=== PATIENT | female | born 1940 | race Caucasian/White ===

== ENCOUNTER → 2019-10-17 14:34 | Outpatient (CLI) | payer MEDICARE, SELFPAY ==
--- NOTE | ~2019-10-17 | XR_ITS ---
EXAMINATION: XR lumbar spine 2-3V DATE: 10/17/2019 15:00 INDICATION: Low back pain. TECHNIQUE: 3 views of lumbar spine were obtained. COMPARISON: Lumbar spine radiographs 10/04/2017 FINDINGS: There is 6 degrees levocurvature of thoracic lumbar spine. Vertebral body heights are adeline l. There is mildly decreased disc height at L1-L2 and L2-L3. There are endplate osteophytes at most l evels. There is multilevel facet joint osteoarthritis, moderate in lower lumbar spine. IMPRESSION: 1. Mild lumbar spondylosis. Reviewed, dictated and finalized at location A. EILLANCE OBSERVER IMPRESSION: 1. Mild lumbar spondylosis.
== END ==
PROVIDERS: Visit Provider Family Medicine Adolescent Medicine
DX: M47.896 Other spondylosis, lumbar region (principal)
CPT/HCPCS: 72100

== ENCOUNTER → 2020-10-25 15:15 | Outpatient (CLI) | payer MEDICARE, SELFPAY ==
--- NOTE | ~2020-10-25 | XR_ITS ---
EXAMINATION: XR hip RT min 2V DATE: 10/25/2020 15:37 INDICATION: Right hip pain. TECHNIQUE: 2 views of right hip were obtained. COMPARISON: None. FINDINGS: Bone alignment is normal. No fracture. There is mild right hip osteoarthritis. IMPRESSION: 1. Mild right hip osteoarthritis. Reviewed, dictated and finalized at location A. ART TECHNICIAN
== END ==
PROVIDERS: Visit Provider Family Medicine Adolescent Medicine
DX: M16.11 Unilateral primary osteoarthritis, right hip (principal)
CPT/HCPCS: 73502

== ENCOUNTER → 2020-11-29 12:39 | Outpatient (CLI) | payer MEDICARE, SELFPAY ==
--- NOTE | ~2020-11-29 | XR_ITS ---
EXAMINATION: XR ankle LT min 3V, XR foot LT min 3V DATE: 11/29/2020 13:13 INDICATION: Left foot and ankle pain TECHNIQUE: 1. Anteroposterior, mortise, additional oblique and lateral view of the left ankle were obtained. 2. Dorsoplantar, two oblique and lateral views of the left foot were obtained. COMPARISON: None. FINDINGS: There is mild medial angulation and mild hyperflexion at the left third distal interphalangeal joint. Alignment of the foot and ankle is otherwise normal with old healed fracture at the neck of the left fifth metatarsal. No acute fracture. Diffuse osteopenia. Mild polyarticular osteoarthritis throughou t the left foot and ankle most prominent at the tarsal metatarsal and interphalangeal joints. Small p lantar calcaneal spur. No ankle joint effusion. The soft tissues are unremarkable. IMPRESSION: 1. Degenerative skeletal changes including small plantar calcaneal spur and mild polyarticular osteoa rthritis in the left foot. Reviewed, dictated and finalized at location A. IMPRESSION: 1. Degenerative skeletal changes including small plantar calcaneal spur and mil d polyarticular osteoarthritis in the left foot.
== END ==
PROVIDERS: PCP Family Medicine Adolescent Medicine; Visit Provider Family Medicine Adolescent Medicine
DX: M77.32 Calcaneal spur, left foot (principal); M19.072 Primary osteoarthritis, left ankle and foot
CPT/HCPCS: 73610; 73630

== ENCOUNTER 2021-01-03 16:27 | Emergency (ER) | payer MEDICARE, SELFPAY ==
--- NOTE | ~2021-01-03 | XR_ITS ---
EXAMINATION: XR abdomen/kub 1V DATE: 01/03/2021 17:27 INDICATION: Constipation TECHNIQUE: A supine view of the abdomen on 3 radiographs was obtained. COMPARISON: None. FINDINGS: There is a large amount of stool scattered throughout the colon from cecum to the rectum. No dilated loops of gas-filled small bowel to suggest obstruction. Lung bases are clear. Heart size is normal. C ouple phleboliths in the right hemipelvis. Mild scattered degenerative skeletal changes. IMPRESSION: 1. Large amount of stool throughout the colon consistent with given history of constipation. Reviewed, dictated and finalized at location A.
[2021-01-03 16:41] VITALS: BP 151/78; PULSE 65; RESP 22; TEMP 36.7; O2SAT 95
--- NOTE | 2021-01-03 17:01 | ED.GENADULT ---
HPI - General Adult General Chief complaint: Unspecified Stated complaint: constipation Time Seen by Provider: 01/03/21 16:44 Source: patient and family History of Present Illness HPI narrative: Patient is a 80 y/o female complain of severe constipation. states that her last BM was 4 days ago. They tried milk of magnesia, which did not help. He states that she has some pain when she attempted to have a BM earlier, but she denies any pain currently. She has no vomiting. Related Data Allergies Allergy/AdvReac Type Severity Reaction Status Date / Time No Known Allergies Allergy Unverified 02/23/19 10:17 Review of Systems Constitutional: Constitutional: Denies chills, Denies fever(s), Denies headache(s) and Denies weakness Eyes: Eyes: Denies blurry vision ENT: Denies headache(s) and Denies neck pain Cardiovascular: Cardiovascular: Denies chest pain and Denies dyspnea Respiratory: Respiratory: Denies cough and Denies dyspnea Gastrointestinal: Gastrointestinal: Denies abdominal pain, Reports constipation, Denies diarrhea, Denies nausea and Denies vomiting Genitourinary: Genitourinary: Denies hematuria and Denies dysuria Musculoskeletal: Musculoskeletal: Denies back pain and Denies neck pain Neurologic: Denies headache(s) and Denies weakness Exam Const: General: no acute distress and well developed Orientation/consciousness: oriented to person and oriented to place HENMT: Head: normocephalic Ears: external ears normal General nose exam: Normal external nose present Eyes: General: appearance normal, both eyes and all related structures Conjunctivae: conjunctivae normal Neck: Neck: normal visual inspection and full ROM Chest: Chest palpation & inspection: normal inspection of the chest and no tenderness Resp: Effort & Inspection: normal respiratory effort Auscultation: clear to auscultation bilaterally Cardio: Rate: regular rate Rhythm: regular rhythm GI: GI Palp: No abdominal tenderness and Yes Soft to palpation Skin: General skin exam: normal color and turgor normal Neuro: General: oriented to person, oriented to place and confusion Cognition (Neuro): normal cognition Extrem: General: normal to inspection, full ROM and no pedal edema Psych: Appearance: grossly normal Mental Status: mental status grossly normal Affect: normal affect Course Reevaluation(s) Reevaluation #1: Rechecked. Patient feels better. She just had a BM. Discussed with patient and about labs including anemia. states that patient has blood in stool sometimes. Offered patient admission for observation and urgent GI work. However, patient and family do not want to stay in the hospital. He state that he will call tomorrow to schedule GI appointment for her. Date: 01/03/21 Time: 19:19 Vital Signs Vital signs: Vital Signs Temperature 36.7 C 01/03/21 16:41 Pulse Rate 65 01/03/21 16:41 Respiratory Rate 22 H 01/03/21 16:41 Blood Pressure 151/78 H 01/03/21 16:41 Pulse Oximetry 95 01/03/21 16:41 Temperature 36.7 C 01/03/21 19:37 Pulse Rate 72 01/03/21 19:37 Respiratory Rate 16 01/03/21 19:37 Blood Pressure 192/85 H 01/03/21 19:37 Pulse Oximetry 100 01/03/21 19:37 Medical Decision Making Vital Signs Vital Signs: Vital Signs Temperature 36.7 C 01/03/21 16:41 Pulse Rate 65 01/03/21 16:41 Respiratory Rate 22 H 01/03/21 16:41 Blood Pressure 151/78 H 01/03/21 16:41 Pulse Oximetry 95 01/03/21 16:41 Temperature 36.7 C 01/03/21 19:37 Pulse Rate 72 01/03/21 19:37 Respiratory Rate 16 01/03/21 19:37 Blood Pressure 192/85 H 01/03/21 19:37 Pulse Oximetry 100 01/03/21 19:37 Lab Data Result diagrams: 01/03/21 17:06 01/03/21 17:06 Labs: Lab Results 01/03/21 01/03/21 Range/Units 17:06 17:06 WBC 8.7 (4.5-10.0) K/mm3 RBC 3.73 L (4.2-5.4) M/mm3 Hgb 8.6 L (12.0-15.0) g/dL Hct 29.0 L (37.0-47.0) % MCV
[2021-01-03 17:12] LABS: Basophils Percent Auto 0.5 % (0.2-1.2); Eosinophils Absolute Auto 0.1 K/mm3 (0-0.3); Eosinophils Percent Auto 0.8 % (0-4.4); Hemoglobin 8.6 g/dL (12.0-15.0); Immature Granulocyte Absolute 0.01 K/mm3 (0.00-0.031); Immature Granulocyte Percent A 0.1 % (0-0.5); Lymphocytes Absolute Auto 1.06 K/mm3 (0.9-3.2); Lymphocytes Percent Auto 12.2 % (18.3-44.2); Mean Corpuscular HGB Conc 29.7 g/dl (32-36); Mean Corpuscular Hemoglobin 23.1 pg (26-34); Mean Corpuscular Volume 77.7 fl (80-100); Mean Platelet Volume 9.3 fl (7.4-10.4); Monocytes Absolute Auto 0.6 K/mm3 (0.1-0.6); Monocytes Percent Auto 6.9 % (2.6-8.5); Neutrophils Absolute Auto 6.9 K/mm3 (1.3-6.7); Neutrophils Percent Auto 79.5 % (45.5-73.1); Platelet Count Result 318 k/mm3 (150-375); Red Blood Count 3.73 M/mm3 (4.2-5.4); Red Cell Distribution Width 16.7 % (11.5-14.5); White Blood Count 8.7 K/mm3 (4.5-10.0)
[2021-01-03 17:22] LABS: Alanine Aminotransferase 15 U/L (4-35); Albumin Level 3.7 g/dL (3.5-5.1); Alkaline Phosphatase 54 U/L (38-126); Anion Gap 5 mmol/L (8-16); Aspartate Amino Transferase 27 U/L (14-36); Bilirubin,Total < 0.1 mg/dL (0.2-1.3); Blood Urea Nitrogen 23 mg/dL (7-17); Calcium 8.6 mg/dL (8.4-10.2); Carbon Dioxide 26 mmol/L (22-30); Chloride 108 mmol/L (98-107); Estimated CRCL calculation 48 ml/min; Estimated Glomerular Filt Rate 60; Glucose 144 mg/dL (65-105); Potassium 4.2 mmol/L (3.4-5.0); Sodium 139 mmol/L (137-145)
[2021-01-03 17:33] LABS: Anisocytosis 2+ (NORMAL); Platelet Estimate Adequate (Adequate)
[2021-01-03 17:34] LABS: Hypochromasia 1+ (NORMAL)
[2021-01-03 18:00] VITALS: BP 157/75; PULSE 64; RESP 16; O2SAT 100
[2021-01-03] MEDS: BISACODYL 10 MG SUPPOSITORY RECTAL (18:00)
[2021-01-03] MEDS: MAGNESIUM CITRATE 300 ML BTL PO (18:00)
[2021-01-03 18:43] VITALS: BP 163/78; PULSE 68; RESP 20; O2SAT 98
[2021-01-03] MEDS: SODIUM CHLORIDE 0.9% IV 1,000 ML 999 ML IV CONT (18:46)
--- NOTE | 2021-01-03 19:24 | PC.NURSE ---
Pt ambulated to bathroom and had a large bowel movement. EDP grecia notified.
[2021-01-03 19:37] VITALS: BP 192/85; PULSE 72; RESP 16; TEMP 36.7; O2SAT 100
== END 2021-01-03 19:55 | disposition home or self-care (01) ==
PROVIDERS: Emergency Provider Emergency Medicine; PCP Family Medicine Adolescent Medicine
DX: K92.1 Melena (principal); K59.00 Constipation, unspecified; D64.9 Anemia, unspecified
CPT/HCPCS: 36415; 74018; 80053; 85025; 96360; 99283; A9270; J7030

== ENCOUNTER → 2021-04-26 03:26 | Outpatient (CLI) | payer MEDICARE, SELFPAY ==
[2021-04-26 19:42] LABS: SARS-CoV-2 RNA PCR Positive
== END ==
PROVIDERS: PCP Family Medicine Adolescent Medicine; Visit Provider Physician Assistant
DX: U07.1 COVID-19 (principal)
CPT/HCPCS: C9803; U0003; U0005

== ENCOUNTER 2021-07-02 15:10 | Emergency (ER) | payer MEDICARE, SELFPAY ==
[2021-07-02 15:27] VITALS: BP 164/77; PULSE 58; RESP 18; TEMP 36.5; O2SAT 99
--- NOTE | 2021-07-02 16:14 | ED.FEMALEGU ---
HPI - Female Genitourinary General Chief complaint: Urogenital-Female Stated complaint: UTI Time Seen by Provider: 07/02/21 16:08 Source: patient, family and RN notes reviewed Mode of arrival: ambulatory Limitations: no limitations History of Present Illness HPI Narrative: Patient presents with daughter complaining of 2-day history of dysuria, hematuria. Denies abdominal pain, frequency, urgency, back pain, fever. No [id number] interventions prior to arrival. MD elicited complaint: UTI Related Data Home Medications Medication Instructions Recorded Confirmed citalopram mg 07/02/21 donepezil mg 07/02/21 meloxicam 07/02/21 memantine mg 07/02/21 pantoprazole PO 07/02/21 simvastatin mg 07/02/21 sotalol 07/02/21 trazodone 07/02/21 Allergies Allergy/AdvReac Type Severity Reaction Status Date / Time No Known Allergies Allergy Verified 07/02/21 15:34 Review of Systems Review of Systems: CONSTITUTIONAL: Denies body aches, fever, chills, or sweats. EYES: Denies visual changes, redness, or discharge. ENT: Denies rhinorrhea, congestion, sore throat, or otalgia. CARDIOVASCULAR: Denies chest pain, palpitations, or edema. RESPIRATORY: Denies cough or dyspnea. GASTROINTESTINAL: Denies abdominal pain, nausea, vomiting, or diarrhea. GENITOURINARY: + Dysuria, hematuria SKIN: Denies rash, itching, or wounds. MUSCULOSKELETAL: Denies back pain, joint pain, or myalgia. NEUROLOGIC: Denies headache, numbness, tingling, or weakness. PSYCH: Denies depression or anxiety. FOR[facility] Past Medical History Medical History (Updated 07/02/21 @ 17:54 by Chey Marte, [facility], ) Alzheimer's dementia Comments At time of signature, I have reviewed and agree with nursing past medical, surgical, social and family history unless otherwise noted. Please see nursing chart for further information. There is no relevant family history pertinent to the presenting complaint Exam Narrative: GENERAL: Well-appearing, well-nourished, and in no acute distress. HEAD: Normocephalic, atraumatic. EYES: EOMI. No redness or drainage. Conjunctivae normal. ENT: Mucous membranes pink and moist. NECK: Normal AROM. CHEST: No respiratory distress. Clear to auscultation. HEART: Regular rate and rhythm. No murmur appreciated. Normal peripheral pulses. ABDOMEN: Soft, nontender, nondistended, normal active bowel sounds.-CVAT MUSCULOSKELETAL: No bony tenderness. EXTREMITIES: Normal range of motion. No edema. SKIN: Warm, dry, no rash. Capillary refill normal. Normal skin turgor. NEURO: No focal deficits. Alert and oriented x3. Gait steady. PSYCH: Normal affect. No signs of depression or anxiety. Course Course Emergency Course: 1733- Patient just provided urine sample. Vital Signs Vital signs: Vital Signs Temperature 97.7 F 07/02/21 15:27 Pulse Rate 58 L 07/02/21 15:27 Respiratory Rate 18 07/02/21 15:27 Blood Pressure 164/77 H 07/02/21 15:27 Pulse Oximetry 99 07/02/21 15:27 Temperature 97.7 F 07/02/21 15:27 Pulse Rate 58 L 07/02/21 15:27 Respiratory Rate 18 07/02/21 15:27 Blood Pressure 164/77 H 07/02/21 15:27 Pulse Oximetry 99 07/02/21 15:27 Reviewed. Pt has been instructed to follow up with her PCP regarding her elevated blood pressure today. MDM - Female Genitourinary Differential Diagnosis Differential diagnosis: Likely urinary tract infection, vaginitis and cystitis Lab Data Attestation: I reviewed the patient's lab results. Labs: Urine Glucose Negative Reference Range: Negative Urine Bilirubin Negative Reference Range: Negative Urine Ketone Negative Reference Range: Negative Urine Specific [place] 1.030 Reference Range:1.001-1.035
== END 2021-07-02 18:00 | disposition home or self-care (01) ==
PROVIDERS: Emergency Provider Nurse Practitioner; PCP Family Medicine Adolescent Medicine
DX: N30.01 Acute cystitis with hematuria (principal); G30.9 Alzheimer's disease, unspecified; F02.80 Dementia in other diseases classified elsewhere, unspecified severity, without behavioral disturbance, psychotic disturbance, mood disturbance, and anxiety
CPT/HCPCS: 81003; 87086; 87088; 99213; G0463

== ENCOUNTER 2021-11-13 10:35 | Outpatient (CLI) | payer MEDICARE, SELFPAY ==
--- NOTE | ~2021-11-13 | MR_ITS ---
EXAMINATION: MR brain/brain stem wo con DATE: 11/13/2021 11:37 INDICATION: Alzheimer's disease, unspecified. Altered mental status. TECHNIQUE: Magnetic resonance imaging (MRI) of the brain and brainstem was performed without intraven ous contrast. Sequences included sagittal and axial T1-weighted FSE, axial diffusion-weighted FS EPI, axial T2*-weighted GRE, axial T2-weighted FLAIR Propeller, and axial T2-weighted Propeller. Apparent diffusion coefficient (ADC) maps were created. COMPARISON: Head CT 02/23/2019 FINDINGS: There are scattered areas of nonspecific increased T2-weighted signal intensity in the cere bral white matter, which is within normal limits for the patient's age. There is an old infarct invol ving the left basal ganglia and anterior limb left internal capsule. There is no intracranial hemorrh age, acute infarction, or abnormal intracranial mass lesion. The ventricles are normal in size. The m astoid air cells are normal. There is a mucous retention cyst in right maxillary sinus. There are lik dolly changes of ocular lens replacement surgeries. IMPRESSION: 1. 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 Reviewed, dictated and finalized at location A.
== END 2021-11-13 10:36 | disposition home or self-care (01) ==
LOC: ANHIMG 10:43
PROVIDERS: PCP Family Medicine Adolescent Medicine; Visit Provider Physician Assistant
DX: G30.9 Alzheimer's disease, unspecified (principal); F02.80 Dementia in other diseases classified elsewhere, unspecified severity, without behavioral disturbance, psychotic disturbance, mood disturbance, and anxiety; R44.3 Hallucinations, unspecified; R74.8 Abnormal levels of other serum enzymes
CPT/HCPCS: 70551

== ENCOUNTER → 2021-11-29 09:26 | Outpatient (CLI) | payer MEDICARE, SELFPAY ==
--- NOTE | ~2021-11-29 | US_ITS ---
EXAMINATION: US right upper quadrant EXAM DATE: 11/29/2021 10:00 INDICATION: R74.8 - Abnormal levels of other serum enzymes. TECHNIQUE: Multiple grayscale and Doppler images of the abdomen right upper quadrant were obtained (b y a technologist who performed the scan) and subsequently reviewed. There is no prior study for guzman ortiz. FINDINGS: The pancreatic head and body are normal in appearance. The pancreatic tail is not visualized. The l iver has normal echogenicity and contour. There are no focal liver lesions identified. There is no evidence of intrahepatic biliary duct dilation. Portal venous flow was seen in the hepatopedal, nor mal direction and has normal Doppler waveform. No right-sided hydronephrosis. Common bile duct measures 3 mm, which is normal. The gallbladder wall is normal in thickness, with ex pected amount of distention. No sonographic evidence of pericholecystic fluid. There is no cholelit hiases. Technologist performing exam reports patient did not demonstrate sonographic Gee's sign. Please note that this sign is less reliable in patients who have received pain medication. IMPRESSION: Unremarkable abdominal ultrasound exam. Reviewed, dictated and finalized at location B.
== END ==
PROVIDERS: PCP Family Medicine Adolescent Medicine; Visit Provider Family Medicine Adolescent Medicine
DX: R74.8 Abnormal levels of other serum enzymes (principal)
CPT/HCPCS: 76705